=== PATIENT | female | born 1975 | race Caucasian/White ===

== ENCOUNTER → 2018-04-05 | Outpatient (CLI) | payer BC ==
[~2018-04-05] MED LIST: GADOBUTROL 7.5 MMOL/7.5 ML PFS ONE
== END | disposition home or self-care (01) ==
LOC: CFH 08:02
PROVIDERS: ATTEND Nurse Practitioner Family
DX: R20.2 Paresthesia of skin (principal)
CPT/HCPCS: 70553; A9585

== ENCOUNTER 2019-01-13 09:40 | Outpatient (CLI) | payer BC | END 2019-01-13 23:59 | disposition home or self-care (01) | LOC: CVU 09:40 | PROVIDERS: ATTEND Nurse Practitioner Family | DX: I37.1 Nonrheumatic pulmonary valve insufficiency (principal) | CPT/HCPCS: 0399T; 93017; 93306 ==

== ENCOUNTER 2019-04-11 08:36 | Day surgery (SDC) | payer BC ==
[~2019-04-11] VITALS: Ht 167.6 cm; Wt 75.5 kg
[2019-04-11 09:25] VITALS: BP 124/80
== END 2019-04-11 12:24 | disposition home or self-care (01) ==
LOC: CACL 08:36
PROVIDERS: ATTEND Internal Medicine Cardiovascular Disease
DX: R55 Syncope and collapse (principal)
CPT/HCPCS: 93660; 93880